=== PATIENT | female | born 1995 | race Caucasian/White ===

== ENCOUNTER → 2019-06-05 | Outpatient (CLI) | payer OTHER ==
--- NOTE | 2019-06-06 08:42 | DIREP ---
PROCEDURE:OBSTETRICAL ULTRASOUND, 2nd AND 3rd TRIMESTER TECHNIQUE:Transabdominal ultrasound of the pelvic contents was performed. COMPARISON:None. INDICATIONS:Z3A.24 IUP @ 24 WKS twins FINDINGS: Dichorionic diamniotic twin NUMBER:Twin A. POSITION:Cephalic AMNIOTIC FLUID VOLUME:ISABELLE - 5.3 cm PLACENTA:On the right, with no evidence of placenta previa. CERVIX:3.4 cm length. The cervix appears closed. HEART RATE:139 bpm BIPARIETAL DIAMETER:5.4 cm (22 W 4 D), <3 percentile HEAD CIRCUMFERENCE:22.8 cm (24 W 5 D), 32.7 percentile ABD CIRCUMFERENCE:20.8 cm (25 W 1 D), 61.9 percentile FEMUR LENGTH:4.4 cm (24 W 1 D), 25.0 percentile ESTIMATED WEIGHT:733 gm (1 lb, 10oz), 52.5 percentile ULTRASOUND GA:24 W 2 D ULTRASOUND EL:September 23, 2019 CLINICAL GA:24 W 5 D CLINICAL EL:September 20, 2019 ANATOMY CEREBELLUM:24.1 mm NUCHAL FOLD:Not relevant for >24 weeks gestation. CISTERNA MAGNA:7.3 mm LATERAL CEREBRAL VENTRICLES:9.9 mm CHOROID PLEXUS:Not shown. MIDLINE FALX:Normal. CAVUM SEPTUM PELLUCIDUM:Present. SPINE:Normal. HEART:Normal. UPPER LIP:Normal. STOMACH:Present. KIDNEYS:Normal - no hydronephrosis. BLADDER:Normal. UMBILICAL CORD INSERTION:Normal. CORD VESSEL NUMBER:Normal 3 vessel cord. EXTREMITIES:Present. NUMBER:Twin B. POSITION:Breech AMNIOTIC FLUID VOLUME:Largest vertical pocket - 5.5 cm (normal is 2-10 cm). PLACENTA:Posterior, with no evidence of placenta previa. HEART RATE:153 bpm BIPARIETAL DIAMETER:5.7 cm (23 W 3 D), 6.9 percentile HEAD CIRCUMFERENCE:23.0 cm (24 W 6 D), 23.0 percentile ABD CIRCUMFERENCE:20.8 cm (25 W 1 D), 62.6 percentile FEMUR LENGTH:4.4 cm (24 W 1 D), 30.6 percentile ESTIMATED WEIGHT:750 gm (1 lb, 10oz), 54.5 percentile ULTRASOUND GA:24 W 4 D ULTRASOUND EL:September 21, 2019 CLINICAL GA:24 W 5 D CLINICAL EL:September 20, 2019 ANATOMY CEREBELLUM:27.4 mm NUCHAL FOLD:Not relevant for >24 weeks gestation. CISTERNA MAGNA:5.8 mm LATERAL CEREBRAL VENTRICLES:4.4 mm CHOROID PLEXUS:Normal. MIDLINE FALX:Normal. CAVUM SEPTUM PELLUCIDUM:Present. SPINE:Normal. HEART:Normal. UPPER LIP:Normal. STOMACH:Present. KIDNEYS:Normal - no hydronephrosis. BLADDER:Normal. UMBILICAL CORD INSERTION:Normal. CORD VESSEL NUMBER:Normal 3 vessel cord. EXTREMITIES:Present. CONCLUSION: Dichorionic diamniotic twin . FETUS_A: Live intrauterine . No anomalies detected on today's examination. biometrics suggest a gestational age of approximately 24 W 2 D, with an Estimated Weight (EFW) of 733 gm (1 lb, 10oz). FETUS_B: The fetus is in breech presentation. Live intrauterine . No anomalies detected on today's examination. biometrics suggest a gestational age of approximately 24 W 4 D, with an Estimated Weight (EFW) of 750 gm (1 lb, 10oz). One or more growth percentiles falls outside the normal range (between 10 and 90%). Dictated by: TARYN Physician on 06/06/2019 at 08:19 AM ld
--- NOTE | 2019-06-09 11:47 | DIREP ---
PROCEDURE: OBSTETRICAL ULTRASOUND, 2nd AND 3rd TRIMESTER TECHNIQUE: Transabdominal ultrasound of the pelvic contents was performed. COMPARISON: None. INDICATIONS: Z3A.24 IUP @ 24 WKS twins FINDINGS: Dichorionic diamniotic twin NUMBER: Twin A. POSITION: Cephalic AMNIOTIC FLUID VOLUME: ISABELLE 5.3 cm PLACENTA: On the right, with no evidence of placenta previa. CERVIX: 3.4 cm length. The cervix appears closed. HEART RATE: 139 bpm BIPARIETAL DIAMETER: 5.4 cm (22 W 4 D), <3 percentile HEAD CIRCUMFERENCE: 22.8 cm (24 W 5 D), 32.7 percentile ABD CIRCUMFERENCE: 20.8 cm (25 W 1 D), 61.9 percentile FEMUR LENGTH: 4.4 cm (24 W 1 D), 25.0 percentile ESTIMATED WEIGHT: 733 gm (1 lb, 10oz), 52.5 percentile ULTRASOUND GA: 24 W 2 D ULTRASOUND EL: September 23, 2019 CLINICAL GA: 24 W 5 D CLINICAL EL: September 20, 2019 ANATOMY CEREBELLUM: 24.1 mm NUCHAL FOLD: Not relevant for >24 weeks gestation. CISTERNA MAGNA: 7.3 mm LATERAL CEREBRAL VENTRICLES: 9.9 mm CHOROID PLEXUS: Not shown. MIDLINE FALX: Normal. CAVUM SEPTUM PELLUCIDUM: Present. SPINE: Normal. HEART: Normal. UPPER LIP: Normal. STOMACH: Present. KIDNEYS: Normal no hydronephrosis. BLADDER: Normal. UMBILICAL CORD INSERTION: Normal. CORD VESSEL NUMBER: Normal 3 vessel cord. EXTREMITIES: Present. NUMBER: Twin B. POSITION: Breech AMNIOTIC FLUID VOLUME: Largest vertical pocket 5.5 cm (normal is 2-10 cm). PLACENTA: Posterior, with no evidence of placenta previa. HEART RATE: 153 bpm BIPARIETAL DIAMETER: 5.7 cm (23 W 3 D), 6.9 percentile HEAD CIRCUMFERENCE: 23.0 cm (24 W 6 D), 23.0 percentile ABD CIRCUMFERENCE: 20.8 cm (25 W 1 D), 62.6 percentile FEMUR LENGTH: 4.4 cm (24 W 1 D), 30.6 percentile ESTIMATED WEIGHT: 750 gm (1 lb, 10oz), 54.5 percentile ULTRASOUND GA: 24 W 4 D ULTRASOUND EL: September 21, 2019 CLINICAL GA: 24 W 5 D CLINICAL EL: September 20, 2019 ANATOMY CEREBELLUM: 27.4 mm NUCHAL FOLD: Not relevant for >24 weeks gestation. CISTERNA MAGNA: 5.8 mm LATERAL CEREBRAL VENTRICLES: 4.4 mm CHOROID PLEXUS: Normal. MIDLINE FALX: Normal. CAVUM SEPTUM PELLUCIDUM: Present. SPINE: Normal. HEART: Normal. UPPER LIP: Normal. STOMACH: Present. KIDNEYS: Normal no hydronephrosis. BLADDER: Normal. UMBILICAL CORD INSERTION: Normal. CORD VESSEL NUMBER: Normal 3 vessel cord. EXTREMITIES: Present. CONCLUSION: Dichorionic diamniotic twin . FETUS_A: Live intrauterine . No anomalies detected on today's examination. biometrics suggest a gestational age of approximately 24 W 2 D, with an Estimated Weight (EFW) of 733 gm (1 lb, 10oz). FETUS_B: The fetus is in breech presentation. Live intrauterine . No anomalies detected on today's examination. biometrics suggest a gestational age of approximately 24 W 4 D, with an Estimated Weight (EFW) of 750 gm (1 lb, 10oz). One or more growth percentiles falls outside the normal range (between 10 and 90%). Dictated by: TARYN Physician on 06/06/2019 at 08:19 AM jeff TOWNSEND
== END | disposition home or self-care (01) ==
LOC: RAD 16:11
PROVIDERS: ATTEND Obstetrics & Gynecology
DX: O30.042 Twin pregnancy, dichorionic/diamniotic, second trimester (principal); O32.1XX1 Maternal care for breech presentation, fetus 1; Z3A.24 24 weeks gestation of pregnancy
CPT/HCPCS: 76805; 76810; 76812

== ENCOUNTER → 2019-06-05 | Outpatient (CLI) | payer OTHER | END | disposition home or self-care (01) | LOC: NPLAB 16:57 | PROVIDERS: ATTEND Obstetrics & Gynecology | DX: Z34.82 Encounter for supervision of other normal pregnancy, second trimester (principal); Z3A.24 24 weeks gestation of pregnancy | CPT/HCPCS: 87077; 87086; 87186 ==

== ENCOUNTER → 2019-06-13 | Outpatient (CLI) | payer OTHER ==
[2019-06-13 17:08] LABS: MEAN CORP HGB 33.6 pg (26-34); RED CELL DISTRIBUTION WIDTH 12.9 % (11.5-14.5)
[2019-06-13 17:24] LABS: CARBON DIOXIDE 23.1 mmol/L (20.0-32)
== END | disposition home or self-care (01) ==
LOC: LAB 16:49
PROVIDERS: ATTEND Obstetrics & Gynecology
DX: Z34.82 Encounter for supervision of other normal pregnancy, second trimester (principal); Z3A.25 25 weeks gestation of pregnancy; R79.89 Other specified abnormal findings of blood chemistry
CPT/HCPCS: 36415; 80053; 82570; 83036; 84156; 85027

== ENCOUNTER → 2019-06-28 | Outpatient (CLI) | payer OTHER ==
[2019-06-28 17:13] LABS: HEMOGLOBIN 12.3 g/dL (12.0-15.0); MEAN CELL HGB 33.4 pg (26-34); MEAN CELL HGB CONCENTRATION 34.1 g/dL (33-37); MEAN CORP VOLUME 98.1 fL (78-100); MEAN PLATELET VOLUME 11.6 fL (7.8-11.0); RED CELL DISTRIBUTION WIDTH 12.7 % (11.5-14.5); WHITE BLOOD CELL 9.3 10^3/uL (4.5-11.0)
== END | disposition home or self-care (01) ==
LOC: LAB 16:42
PROVIDERS: ATTEND Obstetrics & Gynecology
DX: O10.013 Pre-existing essential hypertension complicating pregnancy, third trimester (principal); I10 Essential (primary) hypertension; R82.998 Other abnormal findings in urine
CPT/HCPCS: 36415; 82951; 85027; 87077; 87086; 87186

== ENCOUNTER → 2019-07-07 | Outpatient (CLI) | payer OTHER | END | disposition home or self-care (01) | LOC: LAB 10:22 | PROVIDERS: ATTEND Obstetrics & Gynecology | DX: O24.419 Gestational diabetes mellitus in pregnancy, unspecified control (principal); Z3A.28 28 weeks gestation of pregnancy | CPT/HCPCS: 36415; 82951 ==

== ENCOUNTER → 2019-07-13 | Outpatient (CLI) | payer OTHER ==
--- NOTE | 2019-07-14 01:11 | DIREP ---
PROCEDURE:US BIOPHYSICAL PROFILE W/O NON STRESS COMPARISON:[facility], US, US OB 2 3TRI DETAILED TRANSABD, 06/05/2019, 04:53 PM. INDICATIONS:I10 HTN FINDINGS: Twin A: Breathing:Normal, 2. Movement:Normal, 2. Tone:Normal, 2. Fluid:Normal, 2. Total: 04/19 Number:[place]av[place]. Position:Breech Placenta:Right lateral, no previa LVP:5.2 cm. Cervix:3.6 cm Heart Rate:154 bpm. Biparietal Diameter:7.26 cm,(29/1),14.9 percentile.* Head Circumference:28.5 cm,(31/2),53.5 percentile.* Abdominal Circumference:26.7 cm,(30/6)),69.7 percentile.* Femur Length:5.63 cm,(29/4),23.7 percentile.* Estimated Weight:1555 g, (3 lb 7 oz)57.6 percentile. * *(The percentiles for estimated weight and biometrics are extrapolated from the patients last menstrual period. Depending on the accuracy of the patients dates, the percentiles may or may not be accurate. Clinical correlation is necessary.) Ultrasound GA: 30 weeks 2 days Ultrasound EL: 09/19/2019 Clinical GA: 30 weeks 0 days Clinical EL: 09/21/2019 anatomic survey was not performed. No abnormalities are seen. CONCLUSION: FINDINGS: Twin B: Breathing:Normal, 2. Movement:Normal, 2. Tone:Normal, 2. Fluid:Normal, 2. Total: 04/19 Number:[place]av[place]. Position:Breech Placenta:Posterior, no previa LVP:5.2 cm. Cervix:3.6 cm Heart Rate:154 bpm. Biparietal Diameter:7.30 cm,(29/2),17.9 percentile.* Head Circumference:28.2 cm,(30/6),38.7 percentile.* Abdominal Circumference:25.9 cm,(30/1)),47.2 percentile.* Femur Length:5.65 cm,(29/5),26.4 percentile.* Estimated Weight:1486 g, (3 lb 4 oz)52.1 percentile. * *(The percentiles for estimated weight and biometrics are extrapolated from the patients last menstrual period. Depending on the accuracy of the patients dates, the percentiles may or may not be accurate. Clinical correlation is necessary.) Ultrasound GA: 30 weeks 0 days Ultrasound EL: 09/21/2019 Clinical GA: 30 weeks 0 days Clinical EL: 09/21/2019 anatomic survey was not performed. No abnormalities are seen. CONCLUSION: Dichorionic diamniotic twin gestation. Twin A: * Single viable IUP 30 weeks 2 days, EL 09/21/2019 and EFW 1555 g. * Normal BPP 8/8. * Breech presentation * Normal growth percentiles based on LMP. Twin B: * Single viable IUP 30 weeks 0 days, EL 09/21/2019 and EFW 1486 g. * Normal BPP 8/8. * Breech presentation * Normal growth percentiles based on LMP. Dictated by: Temi Leone MD on 07/14/2019 at 00:51 AM
== END | disposition home or self-care (01) ==
LOC: RAD 15:03
PROVIDERS: ATTEND Obstetrics & Gynecology
DX: O32.1XX0 Maternal care for breech presentation, not applicable or unspecified (principal); O30.043 Twin pregnancy, dichorionic/diamniotic, third trimester; O16.3 Unspecified maternal hypertension, third trimester; Z3A.30 30 weeks gestation of pregnancy
CPT/HCPCS: 76805; 76810; 76819

== ENCOUNTER → 2019-07-19 | Outpatient (CLI) | payer OTHER | END | disposition home or self-care (01) | LOC: LAB 16:37 | PROVIDERS: ATTEND Obstetrics & Gynecology | DX: I10 Essential (primary) hypertension (principal); Z98.84 Bariatric surgery status | CPT/HCPCS: 36415; 82306; 82310; 82607; 82746; 83540; 84425 ==

== ENCOUNTER → 2019-07-20 | Outpatient (CLI) | payer OTHER ==
--- NOTE | 2019-07-20 16:51 | DIREP ---
PROCEDURE:US BIOPHYSICAL PROFILE W/O NON STRESS COMPARISON:[facility], , US OB 2 3TRI DETAILED TRANSABD, 06/05/2019, 04:53 PM. [facility], , US BIOPHYSICAL PROFILE W/O NON STRESS, 07/13/2019, 03:27 PM. INDICATIONS:I10 HTN FINDINGS: Dichorionic diamniotic twin TWIN A Breathing:Normal, 2. Movement:Normal, 2. Tone:Normal, 2. Fluid:Normal, 2. Total: 8 , 8 Number:Twin A. Position:Breech. Placenta:Anterior lateral. No previa. Amniotic Fluid Volume:LVP=7.2 cm. Normal. Cervix:Unremarkable transabdominal assessment Heart Rate:153 bpm. Clinical GA: 31 weeks, 1 days Clinical EL: 09/20/2019 Patient confirmed dates on 1st ultrasound 06/05/2019 anatomic survey was not performed. No abnormalities are seen. TWIN B Breathing:Normal, 2. Movement:Normal, 2. Tone:Normal, 2. Fluid:Normal, 2. Total: 8 , 8 Number:Twin B. Position:Breech. Placenta:Posterior. Amniotic Fluid Volume:LVP=6.5 cm. Heart Rate:139 bpm. anatomic survey was not performed. No abnormalities are seen. CONCLUSION: 1. Live dichorionic diamniotic twin . 2. Twin A: BPP 8/8. Breech. 3. Twin B: BPP 8/8. Breech. Dictated by: Margret Jiménez MD on 07/20/2019 at 04:38 PM
== END | disposition home or self-care (01) ==
LOC: RAD 14:59
PROVIDERS: ATTEND Obstetrics & Gynecology
DX: O16.3 Unspecified maternal hypertension, third trimester (principal); I10 Essential (primary) hypertension; O30.043 Twin pregnancy, dichorionic/diamniotic, third trimester; Z3A.31 31 weeks gestation of pregnancy
CPT/HCPCS: 76815

== ENCOUNTER → 2019-07-27 | Outpatient (CLI) | payer OTHER ==
--- NOTE | 2019-07-28 20:42 | DIREP ---
PROCEDURE:US BIOPHYSICAL PROFILE W/O NON STRESS COMPARISON:[facility], BIOPHYSICAL PROFILE W/O NON STRESS, 07/20/2019, 03:17 PM. [facility], BIOPHYSICAL PROFILE W/O NON STRESS, 07/13/2019, 03:27 PM. [facility], OB 2 3TRI DETAILED TRANSABD, 06/05/2019, 04:53 PM. INDICATIONS:I10 HTN FINDINGS: TWIN A: Breathing:Normal, 2. Movement:Normal, 2. Tone:Normal, 2. Fluid:Normal, 2. Total: 8 , 8 Number:Twin A. Position:Breech Placenta:Anterior/Fundal. No previa. Amniotic Fluid Volume:Largest vertical pocket: 7.8 cm, (normal is 2-8 cm). Cervix:Measures 3.0 cm. Heart Rate:142 bpm. Clinical GA: 32 weeks, 1 day Clinical EL: September 20, 2019 anatomic survey was not performed. No abnormalities are seen. TWIN B: Breathing:Normal, 2. Movement:Normal, 2. Tone:Normal, 2. Fluid:Normal, 2. Total: 8 , 8 Number:Twin B. Position:Breech Placenta:Posterior. No previa. Amniotic Fluid Volume:Largest vertical pocket: 5.5 cm, (normal is 2-8 cm). Heart Rate:148 bpm. Clinical GA: 32 weeks, 1 day Clinical EL: September 20, 2019 biometric survey was not performed. CONCLUSION:Twin gestation. Biophysical profile 04/19 for each gestation. Dictated by: [facility] on 07/27/2019 at 05:02 PM ac
== END | disposition home or self-care (01) ==
LOC: RAD 15:05
PROVIDERS: ATTEND Obstetrics & Gynecology
DX: O10.92 Unspecified pre-existing hypertension complicating childbirth (principal); Z3A.32 32 weeks gestation of pregnancy
CPT/HCPCS: 76819

== ENCOUNTER → 2019-07-30 | Outpatient (CLI) | payer OTHER | END | disposition home or self-care (01) | LOC: NPLAB 17:52 | PROVIDERS: ATTEND Obstetrics & Gynecology | DX: R30.0 Dysuria (principal) | CPT/HCPCS: 87077; 87086; 87186 ==

== ENCOUNTER → 2019-08-03 | Outpatient (CLI) | payer OTHER ==
[~2019-08-03] MED LIST: CELESTONE ONE
--- NOTE | 2019-08-03 17:45 | DIREP ---
This report includes an Addendum and supersedes previous reports for this exam. PROCEDURE:US BIOPHYSICAL PROFILE W/O NON STRESS COMPARISON:[facility], BIOPHYSICAL PROFILE W/O NON STRESS, 07/20/2019, 03:17 PM. [facility], BIOPHYSICAL PROFILE W/O NON STRESS, 07/13/2019, 03:27 PM. [facility], OB 2 3TRI DETAILED TRANSABD, 06/05/2019, 04:53 PM. [facility], BIOPHYSICAL PROFILE W/O NON STRESS, 07/27/2019, 03:28 PM. INDICATIONS:I10 HTN FINDINGS: TWIN A Breathing:Normal, 2. Movement:Normal, 2. Tone:Normal, 2. Fluid:Abnormal, 0. Total: 6 , 8 Number:Chavarria. Position:Breech Placenta:Fundal. No previa. Amniotic Fluid Volume:No measurable pocket of fluid demonstrated on the provided images. On the worksheet, the sql server dba documents a pocket of 5.9 cm was visualized. As no measurable pocket is demonstrated on the submitted exam, the fluid will be reported as abnormal in the BPP above. Cervix:Unremarkable transabdominal assessment. Heart Rate:154 bpm. TWIN B Breathing:Normal, 2. Movement:Normal, 2. Tone:Normal, 2. Fluid:Normal, 2. Total: 8 , 8 Number:Chavarria. Position:Breech. Placenta:Posterior. Amniotic Fluid Volume:LVP-5.4 cm. Normal. Heart Rate:134 bpm. Clinical GA: 33 weeks, 1 days Clinical EL: 09/20/2019 anatomic survey was not performed. No abnormalities are seen. CONCLUSION: 1. Live dichorionic diamniotic twin . 2. Twin A: BPP 6/8. No measurable pocket of fluid documented on exam, please see above comments. Contacted radiology and on-call [employer] to contact the patient and offered to add additional image to this exam/no additional charge. If that image can be obtained, an addendum will be placed on this report. 3. Twin B: BPP 8/8. This report was called by telephone at 5:43 pm on August 03, [address] Sherry Franks . Dictated by: Margret Jiménez MD on 08/03/2019 at 05:28 PM NDUM: Patient returned for additional images. Cardiac motion was documented on both fetuses and largest vertical pocket on Twin A the measured 7.8 cm, normal. Largest vertical pocket on Twin B measured 5.5 cm, normal. Revised BPP for this exam would be 8/8 for both twins. Dictated by: Margret Jiménez MD on 08/06/2019 at 09:52 AM
== END | disposition home or self-care (01) ==
LOC: RAD 15:11
PROVIDERS: ATTEND Obstetrics & Gynecology
DX: O10.92 Unspecified pre-existing hypertension complicating childbirth (principal); O32.8XX0 Maternal care for other malpresentation of fetus, not applicable or unspecified; O32.1XX0 Maternal care for breech presentation, not applicable or unspecified; Z3A.33 33 weeks gestation of pregnancy
CPT/HCPCS: 76810; 76819; J0702

== ENCOUNTER → 2019-08-08 | Outpatient (CLI) | payer OTHER ==
--- NOTE | 2019-08-08 16:56 | DIREP ---
PROCEDURE:US BIOPHYSICAL PROFILE W/O NON STRESS COMPARISON:[facility], , US BIOPHYSICAL PROFILE W/O NON STRESS, 08/03/2019, 03:45 PM. INDICATIONS:I10 HTN FINDINGS: TWIN A Breathing:Normal, 2. Movement:Normal, 2. Tone:Normal, 2. Fluid:Normal, 2. Total: 8 , 8 Number:Twin A Position:Breech. Placenta:Anterior fundal. No previa. Amniotic Fluid Volume:LVP = 4.2 cm. Normal. Cervix:Normal transabdominal assessment. Heart Rate:139 bpm. Biparietal Diameter:7.8 cm,(31 weeks, 2 days),2 percentile. Head Circumference:30.8 cm,(34 weeks, 2 days),27 percentile. Abdominal Circumference:30.5 cm,(34 weeks, 3 days),70 percentile. Femur Length:6.4 cm,(32 weeks, 6 days),20 percentile. Estimated Weight:2254 g,(37 percentile). Ultrasound GA: 33 weeks, 2 days Ultrasound EL: 09/24/2019 Clinical GA: 33 weeks, 6 days Clinical EL: 09/20/2019 anatomic survey was not performed. No abnormalities are seen. Dolichocephaly likely related to persistent breech position. TWIN B Breathing:Normal, 2. Movement:Normal, 2. Tone:Normal, 2. Fluid:Normal, 2. Total: 8 , 8 Number:Twin B Position:Breech. Placenta:Posterior. Amniotic Fluid Volume:LVP = 4.3 cm. Normal. Heart Rate:152 bpm. Biparietal Diameter:8 cm,(32 weeks, 2 days),8 percentile. Head Circumference:31.6 cm,(35 weeks, 3 days),58 percentile. Abdominal Circumference:29.7 cm,(33 weeks, 5 days),47 percentile. Femur Length:6.3 cm,(32 weeks, 3 days),12 percentile. Estimated Weight:2178 g,(28 percentile). Ultrasound GA: 33 weeks, 3 days Ultrasound EL: 09/23/2019 anatomic survey was not performed. No abnormalities are seen. weight discordance: 3.5% CONCLUSION: 1. Live concordant dichorionic diamniotic twin with appropriate interval growth. 2. Twin A: BPP 8/8. 3. Twin B: BPP 8/8. 4. Presenting twin remains breech. Dictated by: Margret Jiménez MD on 08/08/2019 at 04:43 PM
== END | disposition home or self-care (01) ==
LOC: RAD 15:02
PROVIDERS: ATTEND Obstetrics & Gynecology
DX: O10.912 Unspecified pre-existing hypertension complicating pregnancy, second trimester (principal); Z3A.33 33 weeks gestation of pregnancy
CPT/HCPCS: 76810; 76815; 76819

== ENCOUNTER → 2019-08-17 | Outpatient (CLI) | payer OTHER ==
--- NOTE | 2019-08-18 01:53 | DIREP ---
PROCEDURE:US BIOPHYSICAL PROFILE W/O NON STRESS COMPARISON:[facility], BIOPHYSICAL PROFILE W/O NON STRESS, 08/08/2019, 03:18 PM. [facility], BIOPHYSICAL PROFILE W/O NON STRESS, 08/03/2019, 03:45 PM. INDICATIONS:ESSENTIAL HTN FINDINGS: Breathing:Normal, 2 for both fetus a and B. Movement:Normal, 2 for both fetus a and B. Tone:Normal, 2 for both fetus a and B. Fluid:Normal, 2 for both fetus a and B. Summary Fetus Summary Heart Rate:141.14 1/min for fetus a, 155.18 1/min for fetus B Pelvis and Uterus Cervix Length:3.00 cm ISABELLE: The maxillary vertical pocket is 6.0 cm for fetus a, and 5.1 cm for fetus B Position: Breech for fetus a, and cephalic for fetus B. Placental Location: Right lateral for fetus a, and posterior for fetus B. Previa: None demonstrated. CONCLUSION:Normal biophysical profile for both fetus a and fetus B. Dictated by: Kaleb Bush M.D. on 08/18/2019 at 01:49 AM
== END | disposition home or self-care (01) ==
LOC: RAD 17:14
PROVIDERS: ATTEND Obstetrics & Gynecology
DX: O16.3 Unspecified maternal hypertension, third trimester (principal); Z3A.35 35 weeks gestation of pregnancy
CPT/HCPCS: 76805; 76810; 76819

== ENCOUNTER → 2019-08-24 | Outpatient (CLI) | payer OTHER ==
--- NOTE | 2019-08-25 08:13 | DIREP ---
PROCEDURE:US BIOPHYSICAL PROFILE W/O NON STRESS COMPARISON:[facility], BIOPHYSICAL PROFILE W/O NON STRESS, 08/17/2019, 05:27 PM. [facility], BIOPHYSICAL PROFILE W/O NON STRESS, 08/08/2019, 03:18 PM. [facility], BIOPHYSICAL PROFILE W/O NON STRESS, 08/03/2019, 03:45 PM. [facility], BIOPHYSICAL PROFILE W/O NON STRESS, 07/27/2019, 03:28 PM. [facility], BIOPHYSICAL PROFILE W/O NON STRESS, 07/20/2019, 03:17 PM. [facility] BIOPHYSICAL PROFILE W/O NON STRESS, 07/13/2019, 03:27 PM. [facility], OB 2 3TRI DETAILED TRANSABD, 06/05/2019, 04:53 PM. INDICATIONS:I10 HTN FINDINGS: Breathing:Normal, 2. Movement:Normal, 2. Tone:Normal, 2. Fluid:Normal, 2. Total: 8 , 8 Number:Baby A. Position:Breech Placenta:Right lateral Amniotic Fluid Volume:LVP: 6.0 cm. Cervix:Measures 3.0cm Heart Rate:141 bpm. Breathing:Normal, 2. Movement:Normal, 2. Tone:Normal, 2. Fluid:Normal, 2. Total: 8 , 8 Number:Baby B. Position:Cephalic Placenta:Posterior Amniotic Fluid Volume:LVP: 5.1 cm. Cervix:Measures 3.0cm Heart Rate:155 bpm. anatomic survey was not performed. No abnormalities are seen. CONCLUSION: Twin gestation with 8 of 8 biophysical profile for both twin A and B. Presentation of twin A is only partial visualized but appears to be breech . Dictated by: TARYN Physician on 08/24/2019 at 04:47 PM bs
== END | disposition home or self-care (01) ==
LOC: RAD 15:14
PROVIDERS: ATTEND Obstetrics & Gynecology
DX: O16.3 Unspecified maternal hypertension, third trimester (principal); Z3A.35 35 weeks gestation of pregnancy
CPT/HCPCS: 76819

== ENCOUNTER 2019-08-27 16:41 | Inpatient (IN) | payer OTHER ==
[2019-08-27] MEDS ORDERED: PHENERGAN PO PRN (17:00)
[2019-08-27] MEDS ORDERED: TYLENOL PO PRN (17:00)
[2019-08-27] MEDS ORDERED: ZITHROMAX 500 MG in NS 250ML 250 ML IV SCH (17:30)
[2019-08-27] MEDS ORDERED: LACTATED RINGERS 1,000 ML IV SCH (17:30)
[2019-08-27 18:12] LABS: BASOPHIL % 0.3 % (0.0-0.2); EOSINOPHIL % 0.2 % (0.0-5.0); LYMPHOCYTES # 2.7 10^3/uL (1.0-4.8); LYMPHOCYTES % 29.7 % (24.0-44.0); MEAN CORP HGB 32.8 pg (26-34); MONOCYTES # 0.5 10^3/uL (0.3-0.8); MONOCYTES % 5.5 % (5.0-12.0); NEUTROPHIL # 5.7 10^3/uL (1.8-7.7); NEUTROPHILS % 62.9 % (41.0-85.0); RED CELL DISTRIBUTION WIDTH 13.1 % (11.5-14.5)
--- NOTE | 2019-08-27 18:24 | PCM.HP ---
OB-Chief Complaint and HPI Date/Diagnosis Date: Aug 27, 2019 Time: 18:19 Admit Dx: (1) 36 weeks gestation of ICD Codes: Z3A.36 - 36 weeks gestation of SNOMED: 00781290 (2) Depression ICD Codes: F32.9 - Major depressive disorder, single episode, unspecified SNOMED: 78661672 (3) Morbid obesity ICD Codes: E66.01 - Morbid (severe) obesity due to excess calories SNOMED: 515990366 (4) Dichorionic diamniotic twin ICD Codes: O30.049 - Twin , dichorionic/diamniotic, unspecified trimester SNOMED: 458535624 (5) Breech presentation ICD Codes: O32.1XX0 - Maternal care for breech presentation, not applicable or unspecified SNOMED: 0172866 Chief Complaint/History(PI) : 1 Para: 0 EDC: Sep 20, 2019 EGA: 36.4 Past Family/Social History Blood Type: O+ Rubella: immune RPR/VDRL: Negative GBS Status: Negative HBsAG: Negative Provider Note: 24 y/o @ 36.4 presenting as a direct admit to L&D for primary c/s. Pt had elevated BP in the office.Hx of CHTN, recently started on meds this weekend. Labs were pending at the time. Labs have since returned and labs were abnormal. Pt presented to our office as a transfer of care at 25 weeks. She has been monitored for pre-e and ante testing has been done weekly. EFW Q 4 weeks. Twins concordant. A/ 24 y/o @ 36.4 Di/Di twin gestation (VTX/breech) Pre-e s/p BMZ at 32 weeks Morbid obesity Depression CHTN-no meds prior to (prior to sleeve) s/p weight loss surgery, [id number] GBS neg P/ BMZ now Prep for c/s -NICU team en route Wellbutrin 100mg BID Magnesium Discussed pre-e, medication and plan for delivery and care for infants s/p delivery. Questions answered. Pt support present for calls. OB EXAM Physical Exam Allergies Coded Allergies Type Severity Reaction Last Updated Verified Sulfa (Sulfonamide Antibiotics) Allergy Mild hives 08/02/19 Yes LABS Laboratory Tests Test 08/27/19 17:40 HIV-1 Antibody NON-REACTIVE (NONREACTIVE) HIV-2 Antibody NON-REACTIVE (NONREACTIVE) PIPPA KING DO Aug 27, 2019 18:24
[2019-08-27] MEDS ORDERED: MAGNESIUM SULF 4 G/100 ML BAG 100 ML IV SCH (18:30)
[2019-08-27] MEDS ORDERED: MAGNESIUM SULFATE 1,000 ML IV SCH (18:30)
[2019-08-27] MEDS ORDERED: D5LR 1000ML 1,000 ML IV SCH (18:30)
[2019-08-27] MEDS ORDERED: CALCIUM GLUCONATE IV PRN (18:30)
[2019-08-27] MEDS ORDERED: EPHEDRINE SULFATE ONE (18:50)
[2019-08-27] MEDS ORDERED: DURAMORPH ONE (18:50)
[2019-08-27] MEDS ORDERED: ZOFRAN 4 MG/2 ML VIAL ONE (18:50)
[2019-08-27] MEDS ORDERED: OXYTOCIN 30 UNIT/NS 500 ML 1,000 ML IV ONE (18:51)
[2019-08-27] MEDS ORDERED: CELESTONE ONE (19:13)
[2019-08-27] MEDS ORDERED: CELESTONE IM ONE (19:30)
[2019-08-27] MEDS ORDERED: VERSED ONE (20:43)
[2019-08-27] MEDS ORDERED: ANCEF ONE (20:47)
[2019-08-27] MEDS ORDERED: NS 100ML 200 ML IV ONE (20:48)
[2019-08-27] MEDS ORDERED: NS 100ML 100 ML IV ONE (21:18)
[2019-08-27] MEDS ORDERED: TRANEXAMIC ACID IV ONE (21:19)
[2019-08-27] MEDS ORDERED: LIDOCAINE 1% VIAL ONE (21:30)
--- NOTE | 2019-08-27 22:53 | NUR ---
Anesthesia Note Ms. Fraire was taken to the C Section room for C Section. Standard Chloroprep and drape was utilized. 5ml Lidocaine skin wheal was used. A number 25 Gauge pencil point Spinal needle with introducer was inserted at approximately the L2-3 interspace midline. Several attempts at redirecting the needle did not permit access to the subarachnoid space. Upon the third or fourth attempt at redirection, the needle advanced to the hub and it seemed to pass the bone so I advanced the needle in the introducer forward. I encountered resistance similar to the feeling of bone. I started backing the needle out of the introducer and I felt a pop. as I removed the hub, it came back without the needle. I felt for the needle and called Dr. Franks. Instead of isolating the broken needle it apparently pushed it a bit deeper. Dr. Randhawa was called and the broken needle was visualized on C-Arm. According to Dr. Randhawa, the depth of the needle, approximately 2-3 cm, the close proximity to the spine, the high risk and the inadequate equipment here for proper exposure, he elected to stop and effect transfer to a larger and better equipped facility. At no time was any CSF seen in the needle, at no time, including and up to repositioning the patient several times, were any paresthesias, tingling, weakness or any indication that the needle might be compressing a nerve seen. this was a failed spinal with fracturing of the 25 gauge needle. The patient was not experiencing any pain at any time.
--- NOTE | 2019-08-27 23:35 | PRM.PN ---
Assessment/Plan Assessment/Plan Pt was taken back to the OR for c/s. I was called to the room emergently. The KILN DRAWER informed me that the needle broke off at the hub and remained in the patients back. The area was cleaned and lidocaine was injected into the area. We could feel the tip of the needle at the service. A 1 cm incision was made with the scalpel and a brief attempt was made to grasp the needle. We were unsuccessful therefore we called in general surgery for consult. Please see general surgeon note for detail. The decision was made to transfer the pt to another facility with a neurologist and OB team to accept the patient for care. The patient and her mother were informed of the situation in real time and their questions were answered. The patient was accepted at by Dr. Weaver(OB) & Dr Mcleod (neuro) for care. Cat 1 FHT x 2 TOCO- no ctx VS 116/62,106,94% PIPPA KING DO Aug 27, 2019 23:35
[2019-08-28] MEDS ORDERED: ZOFRAN 4 MG/2 ML VIAL ONE (00:24)
[2019-08-28] MEDS ORDERED: ZOFRAN 4 MG/2 ML VIAL IV PRN (00:30)
--- NOTE | 2019-08-28 00:30 | CNH ---
DATE OF CONSULTATION: INTRAOPERATIVE CONSULT INTRAOPERATIVE DIAGNOSIS: Foreign body in the mid back consistent with a broken spinal needle. This case is also inclusive of late twin . SURGEON PROVIDING INTRAOPERATIVE CONSULT: Chip Randhawa DO ANESTHESIA: Provided by Dr. Jay Jay Holman. AMBULANCE PARAMEDIC: Dr. Franks. HISTORY OF PRESENT ILLNESS: The patient is a 24-year-old female who apparently was in the OR for a . Attempt was made by Anesthesia to place a spinal and the needle fractured and was retained in her soft tissues. At the time of my initial presentation, she was lying in the right lateral recumbent position in the OB room. She denied any numbness, tingling or neurologic findings. There was a small opening identified in the mid back, slightly superior to where the foreign body proved to be from the incision that had been created in efforts to remove this needle. Minimal attempts were made to identify the needle with an ultrasound device and subsequently, the patient was repositioned in the room on her left side with the OB bed to allow for C-arm utilization. The C-arm utilization was noted that the deep portion of the spinal needle appears to be closely approximated to her spine, however. We were limited on our visualization because of her obstetric status. The needle had appeared to have a band in the mid shaft. It was identified at approximately the level of L3-L4, though I did not exactly identify her level. With limited visualization, currently stable at the moment and no signs of distress, I discussed the case immediately with Dr. Franks, travel ot. We discontinued any further attempts to try and remove the needle. Neurosurgery was consulted at an outside facility as well as OB and this patient will be transferred to a larger facility that is more equipped to handle such a situation. The patient was subsequently returned to her OB room where she remains on the monitors. Immediately post-attempted procedures upon return to Labor and Delivery room 1, her blood pressure is 116/62 with a heart rate of 106, O2 sat of 94%. Please see the intraoperative vital signs as recorded by the Department of Anesthesia. Please see the vital signs as well as the strip for the baby's as recorded by the OB Department. I have serially examined this patient, she has no signs of focal neurological deficits. At this time, she is awaiting transfer to tertiary facility. Chip Randhawa DO DR: NOAH/radha JOB# [id number] CC: Sherry Franks DO
[2019-08-28 01:00] VITALS: BP 115/59
--- NOTE | 2019-08-28 09:12 | DIREP ---
PROCEDURE:XRAY FLUOROSCOPY COMPARISON:None. INDICATIONS:FOREIGN BODY TECHNIQUE:27 limited intraoperative views of the abdomen were performed for evaluation of foreign body. FINDINGS:Numerous limited intraoperative views of the abdomen obliqued in position demonstrate a curvilinear metallic density consistent with a needle or wire posterior to the L2-3 disc space level. CONCLUSION:Numerous limited intraoperative views of the abdomen demonstrate a curvilinear metallic density consistent with a needle or wire foreign body positioned posterior to the L2-3 disc space level which can be correlated clinically. Dictated by: Flex Hackett M.D. on 08/28/2019 at 09:04 AM
[2019-08-28] MEDS ORDERED: ANCEF 2 GM/D5W 50ML IV SCH (15:00)
--- NOTE | 2019-08-29 15:00 | PRM.DC ---
OB Discharge Summary Discharge Summary Date of Arrival on Unit: Aug 27, 2019 Reason for Visit: pre-eclampsia, Di/Di twin gestation, Discharge Date: Aug 28, 2019 Patient History: Hypertension 33 FATHER No known health problems 32 MOTHER G8 SISTER Unknown 33 FATHER Procedure(s) & Date(s) attempted spinal placement prior to c/s Complications: Other (Spinal needle broke off during placement of spinal prior to c/s prep.) Discharge Diagnosis: IUP Discharge Disposition: Stable Assessment & Plan A/ 24 y/o @ 36.4 Di/Di twin gestation (breech/vertex) Pre-e s/p BMZ at 32 weeks Morbid obesity Depression CHTN-no meds prior to (prior to sleeve) s/p weight loss surgery, [id number] GBS neg P/ BMZ now Prep for c/s -NICU team en route Wellbutrin 100mg BID Magnesium Pt will be transferred to for removal of needle in back. Spinal needle broke off during placement prior to c/s prep. Neuro and [facility] accepted pt for care and treatment. Pt current care and transfer of care have been discussed in detail with patient and she is accepting of transfer. PIPPA KING DO Aug 29, 2019 15:00
== END 2019-08-28 01:00 | disposition short-term general hospital (02) | DRG 831 ==
LOC: LND 16:41 → EDSTATUS 09-06 09:40
PROVIDERS: ADMIT Obstetrics & Gynecology; ATTEND Obstetrics & Gynecology
PROC: 00JU3ZZ Inspection of Spinal Canal, Percutaneous Approach (ICD-10-PCS; principal; 2019-08-27 21:00)
DX: O30.043 Twin pregnancy, dichorionic/diamniotic, third trimester (principal); O11.3 Pre-existing hypertension with pre-eclampsia, third trimester; O10.013 Pre-existing essential hypertension complicating pregnancy, third trimester; T85.610A Breakdown (mechanical) of cranial or spinal infusion catheter, initial encounter; O99.343 Other mental disorders complicating pregnancy, third trimester; O32.1XX0 Maternal care for breech presentation, not applicable or unspecified; F32.9 Major depressive disorder, single episode, unspecified; Z3A.36 36 weeks gestation of pregnancy; Y82.8 Other medical devices associated with adverse incidents; Y92.234 Operating room of hospital as the place of occurrence of the external cause
CPT/HCPCS: 36415; 76000; 85025; 86318; 86885; 86900; 86901; 86921; G0378; J0690; J0702; J2001; J2250; J2405; J3490; J7050; J7120; J2274

== ENCOUNTER → 2019-08-27 | Outpatient (CLI) | payer OTHER ==
[2019-08-27 15:50] LABS: BASOPHIL # 0.1 10^3/uL (0.0-0.1); BASOPHIL % 0.6 % (0.0-0.2); EOSINOPHIL % 0.1 % (0.0-5.0); HEMOGLOBIN 14.3 g/dL (12.0-15.0); LYMPHOCYTES # 2.9 10^3/uL (1.0-4.8); LYMPHOCYTES % 27.3 % (24.0-44.0); MEAN CELL HGB 33.1 pg (26-34); MEAN CELL HGB CONCENTRATION 34.6 g/dL (33-37); MEAN CORP VOLUME 95.6 fL (78-100); MEAN PLATELET VOLUME 11.5 fL (7.8-11.0); MONOCYTES # 0.7 10^3/uL (0.3-0.8); MONOCYTES % 6.1 % (5.0-12.0); NEUTROPHIL # 6.9 10^3/uL (1.8-7.7); NEUTROPHILS % 64.5 % (41.0-85.0); RED CELL DISTRIBUTION WIDTH 13.2 % (11.5-14.5); WHITE BLOOD CELL 10.6 10^3/uL (4.5-11.0)
[2019-08-27 16:17] LABS: CALCIUM 9.7 mg/dL (8.4-10.5); CARBON DIOXIDE 23.5 mmol/L (20.0-32)
== END | disposition home or self-care (01) ==
LOC: LAB 15:25
PROVIDERS: ATTEND Obstetrics & Gynecology
DX: I10 Essential (primary) hypertension (principal)
CPT/HCPCS: 36415; 80053; 84156; 85025

== ENCOUNTER → 2020-03-24 | Outpatient (CLI) | payer OTHER ==
--- NOTE | 2020-03-25 08:25 | DIREP ---
PROCEDURE:US PELVIC FOLLOWED BY TRANSVAGINAL COMPARISON:None. INDICATIONS:CERVICAL DUPLICATION, CONGENITAL MALFORMATION OF CERVIX TECHNIQUE:Pelvic ultrasound using transabdominal technique. Endovaginal images were also obtained for better assessment of the uterus and adnexa. 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 The uterine horns are divergent. There is a dip in the external fundal contour below the inter ostial line. Two endocervical canals are visualized. 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 There may be small communication of the 2 endometrial cavities at the level of the isthmus just above the cervices, image 25. Horn 1: Size is 7.5 x 2.9 x 3.6 cm. The myometrium is homogeneous. Horn 2: Size is 7.7 x 3.4 x 3.3 cm. The myometrium is homogeneous. ENDOMETRIUM:Horn 1 endometrium thickness is 0.6 cm. Horn 2 endometrium thickness is 0.7 cm RIGHT OVARY:Normal appearance. 3.3 x 2.6 x 3.4 cm, Volume: 15.2 ml. LEFT OVARY:Multiple immature follicles. 2.9 x 2.0 x 1.8 cm, Volume: 5.2 ml. CUL-DE-SAC:A small amount of pelvic free fluid is identified. OTHER:A dominant follicle is not identified. CONCLUSION: 1. 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 2. Ovaries: Polycystic. Dictated by: TARYN Physician on 03/24/2020 at 05:59 PM ac
== END | disposition home or self-care (01) ==
LOC: RAD 12:00
PROVIDERS: ATTEND Obstetrics & Gynecology
DX: Q51.820 Cervical duplication (principal); Q51.828 Other congenital malformations of cervix; E28.2 Polycystic ovarian syndrome
CPT/HCPCS: 76830; 76856